=== PATIENT | female | born 1935 | race Caucasian/White ===

== ENCOUNTER 2018-09-02 16:24 | Emergency (ER) | payer MEDICARE ==
--- NOTE | 2018-09-02 16:33 | ERPHSYRPT ---
- History of Present Illness Time Seen by Provider: 09/02/18 16:28 Source: patient Exam Limitations: no limitations Physician History: 83 y/o white female with recent h/o TIA 10 days ago. 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 pt arrived by private vehicle as a passenger. 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 pt denies headache, denies visual changes, denies chest pain. pt states she is a little nauseated. 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 Timing/Duration: today Severity: mild Character of Deficits: new weakness (left upper and lower ext), altered sensation Deficits: weak (left side) Baseline/Normal Cognition: alert oriented x 3 Current Cognition: alert oriented x 3 Baseline Gait: walks w/o assistance Associated Symptoms: weakness, numbness/tingling in legs/feet Allergies/Adverse Reactions: diazepam [From Valium] Adverse Reaction (Mild, Verified 09/02/18 16:36) Home Medications: Clopidogrel Bisulfate 75 mg [PLAVIX 75 MG Tablet] 75 mg PO DAILY 11/29/14 [History] Metoprolol Tartrate 50 mg [Lopressor 50 MG] 50 mg PO BID 11/29/14 [History ] Nitroglycerin 0.4 mg Tablet [Nitrostat 0.4 MG Tablet] 0.4 mg SL Q5MIN PRN MR X 3 PRN 11/29/14 [History] Omeprazole 20 MG [Prilosec 20 mg] 20 mg PO DAILY 11/29/14 [History] Potassium Chloride 10 Meq Tab* [Klor Con 10 MEQ] 10 meq PO DAILY 11/29/14 [ History] Subcutaneous Insulin Pump [Insulin Pump] 0 units SQ ACHS PRN 11/29/14 [History] Acetaminophen 500 mg [Tylenol Extra Strength 500 mg] 1,000 mg PO TID 09/02 [History] Bumetanide 2 mg PO DAILY 09/02/18 [History] Duloxetine HCl [Cymbalta] 20 mg PO DAILY 09/02/18 [History] Gabapentin 300 mg PO BID 09/02/18 [History] Lisinopril 5 mg PO DAILY 04/10/19 [History] Hx Tetanus, Diphtheria Vaccination/Date Given: Yes Hx Influenza Vaccination/Date Given: No Hx Pneumococcal Vaccination/Date Given: No - Review of Systems Constitutional: Weakness (left side) Eyes: No Symptoms Ears, Nose, & Throat: No Symptoms Respiratory: No Symptoms Cardiac: No Symptoms Abdominal/Gastrointestinal: No Symptoms Genitourinary Symptoms: No Symptoms Musculoskeletal: No Symptoms Skin: No Symptoms Neurological: Parasthesia (left upper and lower ext with weakness) Psychological: Anxiety Endocrine: No Symptoms Hematologic/Lymphatic: No Symptoms Immunological/Allergic: No Symptoms All Other Systems: Reviewed and Negative - Past Medical History Pertinent Past Medical History: Yes Neurological History: No Pertinent History ENT History: No Pertinent History Cardiac History: Hypertension Respiratory History: CHF Endocrine Medical History: Diabetes Type II, Other Musculoskeletal History: Arthritis GI Medical History: GERD History: No Pertinent History Psycho-Social History: No Pertinent History Female Reproductive Disorders: No Pertinent History - Past Surgical History Past Surgical History: Yes Neuro Surgical History: No Pertinent History Cardiac: CABG, Valve Replacement, Pacemaker Respiratory: No Pertinent History Gastrointestinal: No Pertinent History Genitourinary: No Pertinent History Musculoskeletal: No Pertinent History Female Surgical History: Lumpectomy, Hysterectomy, Other - Social History Smoking Status: Never smoker Exposure to second hand smoke: No Drug Use: none Patient Lives Alone: No - Nursing Vital Signs Nursing Vital Signs: Initial Vital Signs Pulse Rate 62 09/02/18 16:25 Blood Pressure 185/81 09/02/18 16:25 O2 Sat by Pulse Oximetry 91 L 09/02/18 16:25 Pain Scale Pain Intensity 0 - Ebony Coma Scale Best Eye Response ([place]): (4) open spontaneously Best Verbal Response ([place]): (5) oriented Best Motor Response ([place]): (6) obeys commands [place] Total: 15 - Physical Exam General Appearance: no apparent distress, alert, anxiety Eye Exam: bilateral eye: normal inspection, PERRL, EOMI Ears, Nose, Throat Exam: normal ENT inspection, TMs normal, pharynx normal, moist mucous membranes Neck Exam: normal inspection, non-tender, supple, full range of motion Respiratory: normal breath sounds, lungs clear, airway intact, No chest tenderness, No respiratory distress, No accessory muscle use, No rhonchi, No wheezing, No stridor Cardiovascular: regular rate/rhythm, normal heart sounds, normal peripheral pulses Gastrointestinal: soft, normal bowel sounds, No tenderness, No guarding, No rebound Pelvic Exam: not done Rectal Exam: not done Back Exam: normal inspection, normal range of motion, No CVA tenderness, No vertebral tenderness Extremity Exam: normal inspection, normal range of motion, pelvis stable Mental Status: alert, oriented x 3, cooperative underwriting service representative Exam: normal hearing, normal speech, PERRL, tongue midline Coordination/Gait: normal finger to nose, normal gait Motor/Sensory: no motor deficit, no sensory deficit, no pronator drift Skin Exam: normal color, warm, dry SpO2 Interpretation: normal O2 Delivery: Room Air - Course Nursing assessment & vital signs reviewed: Yes EKG Interpreted by Me: RATE (62), Other (paced rhythm. no acute changes. no comparison ekg) Ordered Tests: Active Orders 24 hr Category Date Time Status Director [employer] STAT Care 09/02/18 16:38 Active EKG-ER Only STAT Care 09/02/18 16:37 Active IV Insertion STAT Care 09/02/18 16:37 Active Pulse Oximetry (ED) STAT Care 09/02/18 16:37 Active HEAD WITHOUT CONTRAST [CT] Stat Exams 09/02/18 16:36 Completed CBC W DIFF Stat Lab 09/02/18 17:02 Completed CMP Stat Lab 09/02/18 17:02 Completed CULTURE,URINE Stat Lab 09/02/18 17:48 Received PROTIME WITH INR Stat Lab 09/02/18 17:02 Completed TROPONIN Q3H Lab 09/02/18 17:02 Completed TROPONIN Q3H Lab 09/02/18 19:45 Ordered TROPONIN Q3H Lab 09/02/18 22:45 Ordered TROPONIN Q3H Lab 09/03/18 01:45 Ordered TROPONIN Q3H Lab 09/03/18 04:45 Ordered UA W/RFX UR CULTURE Stat Lab 09/02/18 17:48 Completed Medication Summary Generic Name Dose Route Start Last Admin Trade Name Freq PRN Reason Stop Dose Admin Sodium Chloride 1,000 mls @ 100 mls/hr 09/02/18 16:45 09/02/18 17:06 Sodium Chloride 0.9% 1000 Ml IV 10/02/18 16:44 100 mls/hr .Q10H JASEN Administration Lab/Rad Data: Laboratory Result Diagrams 09/02/18 17:02 09/02/18 17:02 Laboratory Results 09/02/18 09/02/18 09/02/18 Range/Units 17:48 17:02 17:02 WBC (4.0-10.5) K/mm3 RBC (4.1-5.4) M/mm3 Hgb (12.0-16.0) gm/dl Hct (35-47) % MCV (78-100) fl MCH (26-32) pg MCHC (32-36) g/dl RDW (11.5-14.0) % Plt Count (150-450) K/mm3 MPV (6-9.5) fl Gran % (36.0-66.0) % Eos # (Auto) (0-0.5) Absolute Lymphs (auto) (1.0-4.6) Absolute Monos (auto) (0.0-1.3) Lymphocytes % (24.0-44.0) % Monocytes % (0.0-12.0) % Eosinophils % (0.00-5.0) % Basophils % (0.0-0.4) % Absolute Granulocytes (1.4-6.9) Basophils # (0-0.4) PT 12.5 H (9.95-12.35) SECONDS INR 1.07 (0.8-3.0) Sodium (137-145) mmol/L Potassium (3.5-5.1) mmol/L Chloride (98-107) mmol/L Carbon Dioxide (22-30) mmol/L Anion Gap (5-15) MEQ/L BUN (7-17) mg/dL Creatinine (0.52-1.04) mg/dL Estimated GFR ML/MIN Glucose (74-106) mg/dL Calcium (8.4-10.2) mg/dL Total Bilirubin (0.2-1.3) mg/dL AST (14-36) U/L ALT (0-35) U/L Alkaline Phosphatase (38-126) U/L Troponin I 0.015 (0.000-0.034) ng/mL Serum Total Protein (6.3-8.2) g/dL Albumin (3.5-5.0) g/dL Urine Color YELLOW (YELLOW) Urine Appearance CLEAR (CLEAR) Urine pH 5.0 (5-6) Ur Specific [place] 1.020 (1.005-1.025) Urine Protein 30 (Negative) Urine Ketones NEGATIVE (NEGATIVE) Urine Blood TRACE NON-HEM (0-5) Jose/ul Urine Nitrite NEGATIVE (NEGATIVE) Urine Bilirubin NEGATIVE (NEGATIVE) Urine Urobilinogen NORMAL (0-1) mg/dL Ur Leukocyte Esterase NEGATIVE (NEGATIVE) Urine WBC (Auto) 0-2 (0-5) /HPF Urine RBC (Auto) 0-2 (0-2) /HPF U Epithel Cells (Auto) FEW (FEW) /HPF Urine Bacteria (Auto) NONE SEEN (NEGATIVE) /HPF Urine Mucus (Auto) SLIGHT (NEGATIVE) /HPF Urine Culture Reflexed YES (NO) Urine Glucose NEGATIVE (NEGATIVE) mg/dL 09/02/18 09/02/18 Range/Units 17:02 17:02 WBC 10.3 (4.0-10.5) K/mm3 RBC 3.69 L (4.1-5.4) M/mm3 Hgb 11.2 L (12.0-16.0) gm/dl Hct 36.3 (35-47) % MCV 98.4 (78-100) fl MCH 30.3 (26-32) pg MCHC 30.9 L (32-36) g/dl RDW 14.3 H (11.5-14.0) % Plt Count 338 (150-450) K/mm3 MPV 9.4 (6-9.5) fl Gran % 56.5 (36.0-66.0) % Eos # (Auto) 0.30 (0-0.5) Absolute Lymphs (auto) 3.07 (1.0-4.6) Absolute Monos (auto) 1.07 (0.0-1.3) Lymphocytes % 29.7 (24.0-44.0) % Monocytes % 10.3 (0.0-12.0) % Eosinophils % 2.9 (0.00-5.0) % Basophils % 0.6 (0.0-0.4) % Absolute Granulocytes 5.84 (1.4-6.9) Basophils # 0.06 (0-0.4) PT (9.95-12.35) SECONDS INR (0.8-3.0) Sodium 142 (137-145) mmol/L Potassium 3.8 (3.5-5.1) mmol/L Chloride 103 (98-107) mmol/L Carbon Dioxide 26 (22-30) mmol/L Anion Gap 17.1 H (5-15) MEQ/L BUN 20 H (7-17) mg/dL Creatinine 0.98 (0.52-1.04) mg/dL Estimated GFR 57.9 ML/MIN Glucose 168 H (74-106) mg/dL Calcium 9.8 (8.4-10.2) mg/dL Total Bilirubin 0.50 (0.2-1.3) mg/dL AST 14 (14-36) U/L ALT 16 (0-35) U/L Alkaline Phosphatase 52 (38-126) U/L Troponin I (0.000-0.034) ng/mL Serum Total Protein 8.2 (6.3-8.2) g/dL Albumin 4.6 (3.5-5.0) g/dL Urine Color (YELLOW) Urine Appearance (CLEAR) Urine pH (5-6) Ur Specific [place] (1.005-1.025) Urine Protein (Negative) Urine Ketones (NEGATIVE) Urine Blood (0-5) Jose/ul Urine Nitrite (NEGATIVE) Urine Bilirubin (NEGATIVE) Urine Urobilinogen (0-1) mg/dL Ur Leukocyte Esterase (NEGATIVE) Urine WBC (Auto) (0-5) /HPF Urine RBC (Auto) (0-2) /HPF U Epithel Cells (Auto) (FEW) /HPF Urine Bacteria (Auto) (NEGATIVE) /HPF Urine Mucus (Auto) (NEGATIVE) /HPF Urine Culture Reflexed (NO) Urine Glucose (NEGATIVE) mg/dL - Progress Progress: improved, re-examined Progress Note: 09/02/18 19:37 ct head no acute process 09/02/18 19:38 reviewed pt hx, condition, lab, ekg and ct head results with dr. merino. he accepts pt in transfer to [place] Discussed with DrZen: Other (dr. merino) Counseled pt/family regarding: lab results, diagnosis, rad results - Departure Departure Disposition: Transfer Clinical Impression: TIA (transient ischemic attack) Condition: Stable Critical Care Time: Yes Critical Care Time(excluding separately billable procedures): 30-74 minutes Referrals: DAVID LATHAM [ACTIVE STAFF] -
[2018-09-02] MEDS ORDERED: Sodium Chloride 0.9% 1000 ML 1,000 ML ONE (16:58)
--- NOTE | 2018-09-02 17:02 | XRAY ---
Indication: Left upper and lower extremity weakness. Multiple contiguous axial images obtained through the head without contrast. Comparison: None Age-appropriate global atrophy and minimal periventricular anterior microvascular ischemia. No acute intracranial hemorrhage, abnormal extra-axial fluid collection, or mass effect. Fourth ventricle is midline without hydrocephalus. [place]-white matter differentiation preserved. Bony calvarium intact. Visualized paranasal sinuses and mastoid air cells are clear. Impression: Nonacute senile brain. CTDI 67.80
[2018-09-02] MEDS ORDERED: Sodium Chloride 0.9% 1000 ML 0 ML ONE (17:06)
[2018-09-02] MEDS: Sodium Chloride 0.9% 1000 ML 1,000 ML IV SCH (17:06)
[2018-09-02 17:20] LABS: BASOPHIL % 0.6 % (0.0-0.4); Basophil (Absolute #) 0.06 (0-0.4); Eosinophil % 2.9 % (0.00-5.0); Granulocyte Absolute (ANC) 5.84 (1.4-6.9); Granulocytes % 56.5 % (36.0-66.0); Hematocrit 36.3 % (35-47); Hemoglobin 11.2 gm/dl (12.0-16.0); Lymphocyte (Absolute #) 3.07 (1.0-4.6); Lymphocytes % 29.7 % (24.0-44.0); Mean Cell Volume 98.4 fl (78-100); Mean Corpuscular Hgb Concent. 30.9 g/dl (32-36); Mean Platelet Volume 9.4 fl (6-9.5); Monocyte (Absolute #) 1.07 (0.0-1.3); Monocytes % 10.3 % (0.0-12.0); Platelet Count 338 K/mm3 (150-450); Red Blood Count 3.69 M/mm3 (4.1-5.4); Red Cell Distribution Width 14.3 % (11.5-14.0); White Blood Count 10.3 K/mm3 (4.0-10.5)
[2018-09-02 17:24] LABS: INR 1.07 (0.8-3.0); PROTIME 12.5 SECONDS (9.95-12.35)
[2018-09-02 17:26] LABS: Mean Corpuscular Hemoglobin 30.3 pg (26-32)
[2018-09-02 17:37] LABS: ALBUMIN 4.6 g/dL (3.5-5.0); ANION GAP 17.1 MEQ/L (5-15); BILIRUBIN,TOTAL 0.5 mg/dL (0.2-1.3); Calcium 9.8 mg/dL (8.4-10.2); Creatinine 1 0.98 mg/dL (0.52-1.04); Potassium 3.8 mmol/L (3.5-5.1); Total Protein 8.2 g/dL (6.3-8.2)
[2018-09-02 18:05] LABS: Appearance CLEAR (CLEAR); Bacteria NONE SEEN /HPF (NEGATIVE); Bilirubin NEGATIVE (NEGATIVE); Blood TRACE NON-HEM Ery/ul (0-5); Epithelial Cells FEW /HPF (FEW); Glucose NEGATIVE (NEGATIVE); Ketones NEGATIVE (NEGATIVE); Leukocyte Esterase NEGATIVE (NEGATIVE); Mucus SLIGHT /HPF (NEGATIVE); Nitrite NEGATIVE (NEGATIVE); Protein,Urine Dip 30 (Negative); RBC 0-2 /HPF (0-2); Urobilinogen NORMAL mg/dL (0-1); WBC 0-2 /HPF (0-5)
[2018-09-02] MEDS ORDERED: LOPRESSOR 5 MG/5 ML INJECTION IV ONE (20:37)
[2018-09-02] MEDS: LOPRESSOR 5 MG/5 ML INJECTION IV ONE (20:40)
[2018-09-02 21:26] VITALS: BP 130/80
[2018-09-02 21:27] VITALS: PULSE 80; O2SAT 99
== END 2018-09-02 21:00 | disposition short-term general hospital (02) ==
LOC: ED 16:24
DX: G45.9 Transient cerebral ischemic attack, unspecified (principal); Z79.899 Other long term (current) drug therapy
CPT/HCPCS: 36000; 36415; 70450; 80053; 81001; 84484; 85025; 85610; 87086; 93005; 93041; 96360; 96361; 96374; 99284

== ENCOUNTER 2024-09-30 09:33 | Day surgery (SDC) | payer MEDICARE, OTHER ==
[2024-09-30] MEDS ORDERED: BUPIVACAINE 0.5% VIAL IJ ONE (09:34)
[2024-09-30] MEDS ORDERED: methylPREDNISolone acetate IM ONE (09:34)
[2024-09-30] MEDS ORDERED: propofoL IV ONE (11:06)
[2024-09-30] MEDS ORDERED: Lactated Ringers 1,000 ML IV ONE (12:21)
--- NOTE | 2024-09-30 13:21 | XRAY ---
Indication: Bilateral SI joint injection. Intraoperative fluoroscopy for right for 21 seconds. 2 digital spot image submitted for interpretation demonstrates posterior needle tips projecting over expected left and right SI joints. Small amount of contrast injected for needle tip placement. Correlate with intraoperative findings/report.
--- NOTE | 2024-09-30 14:05 | XRAY ---
21 seconds of fluoroscopy were used in surgery for bilateral sacroiliac joint injections.
== END 2024-09-30 11:45 | disposition home or self-care (01) ==
LOC: SDC-PAIN 09:33
PROVIDERS: ATTEND Psychiatry & Neurology Pain Medicine
DX: M46.1 Sacroiliitis, not elsewhere classified (principal); E11.9 Type 2 diabetes mellitus without complications
CPT/HCPCS: 27096; 72202; 82947; 99100; J1010; J2704; Q9966